=== PATIENT | female | born 1945 | race Caucasian/White ===

== ENCOUNTER → 2022-07-27 | Outpatient (CLI) | payer BC, MEDICARE ==
[~2022-07-27] MED LIST: ATROPINE SULF 1MG/10ML SYRINGE (J0461) As Ordered ONE; DIGO0.123 PO; DILT240C28 PO; ELIQ2.5T; ELIQ5TAB PO; FERR325T19 PO; FURO20TA2 PO; LIDOCAINE 1% MDV 20ML VIAL As Ordered ONE; METO50TA7 PO; MIDAZOLAM INJ 2MG/2ML VIAL (J2250 PER 1MG) As Ordered ONE; NS 1,000 ML IV SCH; PRAV10TA3 PO; SYMB16INH INH; VITA-243 PO; ceFAZolin 2 GM/D5W 50 ML IV BAG (J0690 PER 500MG) As Ordered ONE; ceFAZolin SOD 2 GM in IV 1 EA IV ONE; diphenhydrAMINE 50MG/ML VIAL As Ordered ONE; fentaNYL 100 MCG/2 ML INJECTION As Ordered ONE
[2022-07-27 16:45] VITALS: BP 143/76
== END ==
LOC: M IRPRO 14:24
PROVIDERS: ATTEND Internal Medicine Medical Oncology
DX: C56.9 Malignant neoplasm of unspecified ovary (principal)
CPT/HCPCS: 36561; C1769; C1788; C1894; J0690; J1642; J1644; J2250; J3010

== ENCOUNTER → 2022-08-11 | Outpatient (CLI) | payer MEDICARE ==
[~2022-08-11] MED LIST changes: -ATROPINE SULF 1MG/10ML SYRINGE (J0461) As Ordered ONE; -LIDOCAINE 1% MDV 20ML VIAL As Ordered ONE; -MIDAZOLAM INJ 2MG/2ML VIAL (J2250 PER 1MG) As Ordered ONE; -NS 1,000 ML IV SCH; -ceFAZolin 2 GM/D5W 50 ML IV BAG (J0690 PER 500MG) As Ordered ONE; -ceFAZolin SOD 2 GM in IV 1 EA IV ONE; -diphenhydrAMINE 50MG/ML VIAL As Ordered ONE; -fentaNYL 100 MCG/2 ML INJECTION As Ordered ONE
== END ==
LOC: M RAD 16:14
PROVIDERS: ATTEND Internal Medicine Medical Oncology
DX: R06.02 Shortness of breath (principal); C56.9 Malignant neoplasm of unspecified ovary; J90 Pleural effusion, not elsewhere classified; R91.8 Other nonspecific abnormal finding of lung field

== ENCOUNTER → 2022-08-16 | Outpatient (POV) | payer MEDICARE ==
[~2022-08-16] VITALS: Ht 160 cm; Wt 63.1 kg
[2022-08-16 13:00] VITALS: BP 159/77
== END ==
LOC: M IRPOV 12:21
PROVIDERS: ATTEND Radiology Diagnostic Radiology
DX: Z45.2 Encounter for adjustment and management of vascular access device (principal)

== ENCOUNTER → 2022-08-23 | Outpatient (CLI) | payer MEDICARE ==
[2022-08-23 11:31] LABS: PH BODY FLUID 7.652 UNITS (NOT ESTABLISHED); SOURCE, BODY FLUID pH PLEURAL
[2022-08-23 12:00] VITALS: BP 122/73
[2022-08-23 13:06] LABS: SOURCE, BODY FLUID GLUCOSE PLEURAL
[2022-08-23 13:07] LABS: LDH, BODY FLUID 118 U/L (NOT ESTABLISHED); SOURCE, BODY FLUID LDH PLEURAL
[2022-08-23 13:08] LABS: SOURCE, BODY FLUID TOT PROTEIN PLEURAL; TOTAL PROTEIN, BODY FLUID 3.1 G/DL (NOT ESTABLISHED)
== END ==
LOC: M IRPRO 09:16
PROVIDERS: ATTEND Internal Medicine Medical Oncology
DX: C56.9 Malignant neoplasm of unspecified ovary (principal); J91.0 Malignant pleural effusion
CPT/HCPCS: 32555; 71046; 82945; 83615; 83986; 84157; 88108; 88305; 88313; J1642

== ENCOUNTER → 2022-08-23 | Outpatient (CLI) | payer MEDICARE ==
[~2022-08-23] MED LIST changes: +GASTROGRAFIN SOLUTION 30ML As Ordered ONE; +ISOVUE-370 76% 100ML VIAL As Ordered ONE
== END ==
LOC: M RAD 10:50
PROVIDERS: ATTEND Internal Medicine Medical Oncology
DX: C56.9 Malignant neoplasm of unspecified ovary (principal)
CPT/HCPCS: 71260; 74177; Q9963; Q9967

== ENCOUNTER → 2022-09-21 | Outpatient (CLI) | payer MEDICARE ==
[~2022-09-21] MED LIST changes: +AUGM500T34 PO; +AZIT-12 PO; -GASTROGRAFIN SOLUTION 30ML As Ordered ONE; -ISOVUE-370 76% 100ML VIAL As Ordered ONE
== END ==
LOC: M RAD 13:48
PROVIDERS: ATTEND Internal Medicine Medical Oncology
DX: J90 Pleural effusion, not elsewhere classified (principal)

== ENCOUNTER → 2022-09-30 | Outpatient (CLI) | payer MEDICARE ==
[~2022-09-30] MED LIST changes: +AMOX500T2 PO; +LIDOCAINE 1% MDV 20ML VIAL As Ordered ONE
[2022-09-30 11:32] LABS: INR 1.15; PROTHROMBIN TIME 14.9 SECONDS (12.5-14.5)
[2022-09-30 13:15] VITALS: BP 108/57
== END ==
LOC: M IRPRO 10:29
PROVIDERS: ATTEND Internal Medicine Medical Oncology
DX: J90 Pleural effusion, not elsewhere classified (principal)

== ENCOUNTER 2022-10-10 11:22 | Inpatient (IN) | payer MEDICARE ==
[~2022-10-10] VITALS: Ht 160 cm; Wt 65.0 kg
[2022-10-10] VITALS (9 sets, daily range): BP systolic 118–147; BP diastolic 71–84
[~2022-10-10 11:22] MED LIST changes: -LIDOCAINE 1% MDV 20ML VIAL As Ordered ONE
[2022-10-10 12:43] LABS: BASO % 0.3 % (0.0-1.0); EOS % 0.3 % (0.0-3.0); HEMATOCRIT 39.5 % (36.0-47.0); HEMOGLOBIN 12.5 g/dl (12.0-15.5); LYMPH # 0.5 10^3/uL (1.5-5.0); LYMPH % 3.6 % (24.0-44.0); MEAN CORPUSCULAR HEMOGLOBIN 32.7 pg (27.0-33.0); MEAN CORPUSCULAR HGB CONC 31.6 g/dl (32.0-36.5); MEAN CORPUSCULAR VOLUME 103.4 fl (80.0-96.0); MONO # 1.2 10^3/uL (0.0-0.8); MONO % 9.5 % (2.0-8.0); NEUTROPHILS % 85.3 % (36.0-66.0); PLATELET COUNT, AUTOMATED 405 10^3/uL (150-450); RED BLOOD COUNT 3.82 10^6/uL (4.00-5.40); WHITE BLOOD COUNT 12.9 10^3/uL (4.0-10.0)
[2022-10-10 13:00] LABS: BILIRUBIN,DIRECT 0.3 MG/DL (<0.4); CALCIUM LEVEL 9.6 MG/DL (8.3-10.6); CREATININE FOR GFR 1.4 MG/DL (0.55-1.30); POTASSIUM SERUM 4.2 MMOL/L (3.5-5.1); TOTAL PROTEIN 6.8 G/DL (5.7-8.2)
[2022-10-10] MEDS ORDERED: ONDANSETRON 4MG 2ML VIAL IV PRN (13:45)
[2022-10-10] MEDS ORDERED: LEVALBUTEROL 1.25MG 0.5ML CONCENTRATE NEB NEB PRN (13:45)
[2022-10-10] MEDS ORDERED: ACETAMINOPHEN TAB 650MG DOSE (2X325MG) PO PRN (13:45)
[2022-10-10] MEDS ORDERED: BISACODYL 10MG SUPP PR PRN (13:45)
[2022-10-10] MEDS ORDERED: PERCOCET 5MG/325MG TAB PO PRN ×2 (13:45)
[2022-10-10] MEDS ORDERED: HOME MED LIST COMPLETE! XX SCH (14:25)
[2022-10-10] MEDS ORDERED: SODIUM CHLORIDE 0.9% INJ 10 ML SYR IV PRN (14:30)
[2022-10-10 15:21] LABS: RSV AMPLIFICATION NEGATIVE (NEGATIVE)
[2022-10-10 15:52] LABS: INR 1.43; PROTHROMBIN TIME 17.7 SECONDS (12.5-14.5)
[2022-10-10 15:53] LABS: PARTIAL THROMBOPLASTIN TIME 33.6 SECONDS (24.8-34.2)
[2022-10-10] MEDS: LEVALBUTEROL 1.25MG 0.5ML CONCENTRATE NEB NEB SCH ×2 (15:58→19:23)
[2022-10-10] MEDS ORDERED: VANCOMYCIN HCL 1,000 MG, VIAL MATE ADAPTER 1 EACH in NS 250 ML IV ONE (16:00)
[2022-10-10 16:04] LABS: CREATININE FOR GFR 1.38 MG/DL (0.55-1.30); GLOMERULAR FILTRATION RATE 39.7 (>39); POTASSIUM SERUM 4.4 MMOL/L (3.5-5.1)
[2022-10-10] MEDS: D5W/0.9% SODIUM CHLORIDE 1,000 ML IV SCH (16:11)
[2022-10-10] MEDS ORDERED: MIDAZOLAM INJ 2MG/2ML VIAL As Ordered ONE ×2 (16:32→16:33)
[2022-10-10] MEDS ORDERED: flumazeniL 0.5MG/5ML VIAL As Ordered ONE (16:32)
[2022-10-10] MEDS ORDERED: LIDOCAINE 1% MDV 20ML VIAL As Ordered ONE (16:33)
[2022-10-10] MEDS ORDERED: MIDAZOLAM INJ 2MG/2ML VIAL IV STA (16:42)
[2022-10-10] MEDS ORDERED: LIDOCAINE 1% MDV 20ML VIAL SC STA (17:22)
[2022-10-10 18:19] LABS: SOURCE, BODY FLUID pH PLEURAL
[2022-10-10 18:27] LABS: SOURCE, BODY FLUID ALBUMIN PLEURAL
[2022-10-10 18:32] LABS: SOURCE, BODY FLUID GLUCOSE PLEURAL; SOURCE, BODY FLUID TRIG PLEURAL; TRIGLYCERIDE, BODY FLUID 31 MG/DL (NOT ESTABLISHED)
[2022-10-10 18:33] LABS: LDH, BODY FLUID 212 U/L (NOT ESTABLISHED); SOURCE, BODY FLUID LDH PLEURAL
[2022-10-10 18:34] LABS: AMYLASE, BODY FLUID 69 U/L (NOT ESTABLISHED); CHOLESTEROL, BODY FLUID 64 MG/DL (NOT ESTABLISHED); SOURCE, BODY FLUID AMYLASE PLEURAL; SOURCE, BODY FLUID CHOL PLEURAL; SOURCE, BODY FLUID TOT PROTEIN PLEURAL; TOTAL PROTEIN, BODY FLUID 3.4 G/DL (NOT ESTABLISHED)
[2022-10-10 18:48] LABS: PLEURAL FL COLOR RED (COLORLESS); SOURCE, BODY FLUID PLEURAL
[2022-10-10 18:49] LABS: APPEARANCE, BODY FLUID CLOUDY (CLEAR)
[2022-10-10] MEDS: SYMBICORT 160/4.5MCG INHALER 6GM INH SCH (19:23)
[2022-10-10] MEDS ORDERED: cefTRIAXone SOD 2 GM in D5W MINI-BAG PLUS 50 ML IV SCH (20:00)
[2022-10-10] MEDS: DOXYCYCLINE HYCLATE 100 MG in D5W MINI-BAG PLUS 100 ML IV SCH (21:53)
[2022-10-10] MEDS: PRAVASTATIN 10 MG TAB PO SCH (22:00)
[2022-10-10] MEDS: DOCUSATE SODIUM 100MG CAPSULE PO SCH (22:00)
[2022-10-10] MEDS: FERROUS SULFATE 325MG TAB PO SCH (22:00)
[2022-10-10] MEDS: APIXABAN 5 MG TAB (ELIQUIS) PO SCH (22:00)
[2022-10-10] MEDS: METOPROLOL TART 50 MG TAB PO SCH (22:00)
[2022-10-11] MEDS: LEVALBUTEROL 1.25MG 0.5ML CONCENTRATE NEB NEB SCH ×4 (01:25→19:45)
[2022-10-11] MEDS: D5W/0.9% SODIUM CHLORIDE 1,000 ML IV SCH (04:15)
[2022-10-11 04:47] VITALS: BP 118/86
[2022-10-11 05:58] LABS: BASO % 0.4 % (0.0-1.0); EOS % 0.5 % (0.0-3.0); HEMATOCRIT 34.4 % (36.0-47.0); HEMOGLOBIN 11.1 g/dl (12.0-15.5); LYMPH # 0.6 10^3/uL (1.5-5.0); LYMPH % 7.1 % (24.0-44.0); MEAN CORPUSCULAR HEMOGLOBIN 33.5 pg (27.0-33.0); MEAN CORPUSCULAR HGB CONC 32.3 g/dl (32.0-36.5); MEAN CORPUSCULAR VOLUME 103.9 fl (80.0-96.0); MONO # 1.2 10^3/uL (0.0-0.8); MONO % 15.7 % (2.0-8.0); NEUTROPHILS % 75.7 % (36.0-66.0); PLATELET COUNT, AUTOMATED 348 10^3/uL (150-450); RED BLOOD COUNT 3.31 10^6/uL (4.00-5.40); WHITE BLOOD COUNT 7.9 10^3/uL (4.0-10.0)
[2022-10-11 06:25] LABS: CALCIUM LEVEL 8.3 MG/DL (8.3-10.6); CREATININE FOR GFR 1.16 MG/DL (0.55-1.30); GLOMERULAR FILTRATION RATE 48.5 (>39); POTASSIUM SERUM 3.8 MMOL/L (3.5-5.1)
[2022-10-11] MEDS: SYMBICORT 160/4.5MCG INHALER 6GM INH SCH ×2 (07:28→19:45)
[2022-10-11 08:15] VITALS: BP 107/64
[2022-10-11] MEDS: FERROUS SULFATE 325MG TAB PO SCH ×2 (08:24→21:40)
[2022-10-11] MEDS: LACTOBACILLUS ACIDOPHILUS CAP (BACID) PO SCH ×2 (08:24→18:30)
[2022-10-11] MEDS: PANTOPRAZOLE 40MG TAB (PROTONIX) PO SCH (08:24)
[2022-10-11] MEDS: APIXABAN 5 MG TAB (ELIQUIS) PO SCH ×2 (08:25→21:39)
[2022-10-11] MEDS: ASCORBIC ACID 500 MG TAB PO SCH (08:25)
[2022-10-11] MEDS: DOXYCYCLINE HYCLATE 100 MG in D5W MINI-BAG PLUS 100 ML IV SCH (08:26)
[2022-10-11] MEDS: DOCUSATE SODIUM 100MG CAPSULE PO SCH ×2 (09:00→21:00)
[2022-10-11] MEDS: MOM 30ML SUSPENSION UDC PO SCH (09:00)
[2022-10-11] MEDS: DIGOXIN 0.125 MG TAB PO SCH (09:24)
[2022-10-11] MEDS: FUROSEMIDE 20 MG TAB PO SCH (09:25)
[2022-10-11] MEDS: METOPROLOL TART 50 MG TAB PO SCH ×2 (09:25→21:42)
[2022-10-11 11:36] VITALS: BP 103/65
[2022-10-11 16:00] VITALS: BP 104/76
[2022-10-11] MEDS: PRAVASTATIN 10 MG TAB PO SCH (18:30)
[2022-10-11] MEDS ORDERED: DOXYCYCLINE HYCLATE 100MG TABLET PO SCH (21:00)
[2022-10-11 21:38] VITALS: BP 107/69
[2022-10-11 23:40] VITALS: BP 105/65
[2022-10-12] MEDS: LEVALBUTEROL 1.25MG 0.5ML CONCENTRATE NEB NEB SCH ×2 (02:00→08:00)
[2022-10-12 05:00] VITALS: BP 106/69
[2022-10-12 05:22] LABS: BASO % 0.3 % (0.0-1.0); EOS # 0.1 10^3/uL (0.0-0.5); EOS % 1.2 % (0.0-3.0); HEMATOCRIT 31.5 % (36.0-47.0); LYMPH # 0.6 10^3/uL (1.5-5.0); LYMPH % 8.2 % (24.0-44.0); MEAN CORPUSCULAR HEMOGLOBIN 32.9 pg (27.0-33.0); MEAN CORPUSCULAR HGB CONC 31.7 g/dl (32.0-36.5); MEAN CORPUSCULAR VOLUME 103.6 fl (80.0-96.0); MONO # 1.2 10^3/uL (0.0-0.8); MONO % 16.1 % (2.0-8.0); NEUTROPHILS # 5.4 10^3/uL (1.5-8.5); PLATELET COUNT, AUTOMATED 357 10^3/uL (150-450); RED BLOOD COUNT 3.04 10^6/uL (4.00-5.40); WHITE BLOOD COUNT 7.5 10^3/uL (4.0-10.0)
[2022-10-12 05:47] LABS: CALCIUM LEVEL 8.1 MG/DL (8.3-10.6); CREATININE FOR GFR 1.15 MG/DL (0.55-1.30); POTASSIUM SERUM 4.2 MMOL/L (3.5-5.1)
[2022-10-12] MEDS: SYMBICORT 160/4.5MCG INHALER 6GM INH SCH (07:59)
[2022-10-12 08:00] VITALS: BP 110/68
[2022-10-12] MEDS: DOCUSATE SODIUM 100MG CAPSULE PO SCH (09:00)
[2022-10-12] MEDS: MOM 30ML SUSPENSION UDC PO SCH (09:00)
[2022-10-12] MEDS: FERROUS SULFATE 325MG TAB PO SCH (09:02)
[2022-10-12] MEDS: LACTOBACILLUS ACIDOPHILUS CAP (BACID) PO SCH (09:02)
[2022-10-12 09:03] VITALS: BP 110/68
[2022-10-12] MEDS: METOPROLOL TART 50 MG TAB PO SCH (09:03)
[2022-10-12] MEDS: APIXABAN 5 MG TAB (ELIQUIS) PO SCH (09:03)
[2022-10-12] MEDS: DIGOXIN 0.125 MG TAB PO SCH (09:04)
[2022-10-12] MEDS: ASCORBIC ACID 500 MG TAB PO SCH (09:05)
[2022-10-12] MEDS: PANTOPRAZOLE 40MG TAB (PROTONIX) PO SCH (09:05)
[2022-10-12] MEDS: FUROSEMIDE 20 MG TAB PO SCH (09:06)
[2022-10-12 12:00] VITALS: BP 104/62
[2022-10-12] MEDS ORDERED: ACET1TAB55 PO (12:11)
[2022-10-12] MEDS ORDERED: SODIUM CHLORIDE 0.9% INJ 10 ML SYR IV PRN (14:20)
== END 2022-10-12 14:55 | disposition home health service (06) | DRG 871 ==
LOC: M ED 11:22 → M ED INP 13:45 → M PCU 13:45 → ENRESERV 14:35 → M PCU 15:57
PROVIDERS: ADMIT Thoracic Surgery (Cardiothoracic Vascular Surgery); ATTEND General Practice
PROC: 0W9B30Z Drainage of Left Pleural Cavity with Drainage Device, Percutaneous Approach (ICD-10-PCS; principal; 2022-10-10)
DX: A41.9 Sepsis, unspecified organism (principal); J15.9 Unspecified bacterial pneumonia; J91.0 Malignant pleural effusion; C56.9 Malignant neoplasm of unspecified ovary; J96.11 Chronic respiratory failure with hypoxia; C78.02 Secondary malignant neoplasm of left lung; J44.9 Chronic obstructive pulmonary disease, unspecified; Z99.81 Dependence on supplemental oxygen; I48.91 Unspecified atrial fibrillation; E78.5 Hyperlipidemia, unspecified; I10 Essential (primary) hypertension; F17.200 Nicotine dependence, unspecified, uncomplicated; Z79.899 Other long term (current) drug therapy; Z79.01 Long term (current) use of anticoagulants; Z88.0 Allergy status to penicillin; Z20.822 Contact with and (suspected) exposure to COVID-19

== ENCOUNTER 2022-10-19 18:27 | Inpatient (IN) | payer MEDICARE ==
[~2022-10-19] VITALS: Ht 160 cm; Wt 65.3 kg
[~2022-10-19 18:27] MED LIST changes: +ACET1TAB55 PO
[2022-10-19] MEDS ORDERED: ACETAMINOPHEN TAB 650MG DOSE (2X325MG) PO PRN (21:05)
[2022-10-19 21:15] VITALS: BP 123/69
[2022-10-19 22:23] LABS: HEMATOCRIT 26.9 % (36.0-47.0); HEMOGLOBIN 8.3 g/dl (12.0-15.5); MEAN CORPUSCULAR HEMOGLOBIN 33.1 pg (27.0-33.0); MEAN CORPUSCULAR HGB CONC 30.9 g/dl (32.0-36.5); MEAN CORPUSCULAR VOLUME 107.2 fl (80.0-96.0); PLATELET COUNT, AUTOMATED 300 10^3/uL (150-450); RED BLOOD COUNT 2.51 10^6/uL (4.00-5.40); WHITE BLOOD COUNT 1.5 10^3/uL (4.0-10.0)
[2022-10-19 22:32] LABS: INR 1.23; PROTHROMBIN TIME 15.8 SECONDS (12.5-14.5)
[2022-10-19 22:33] LABS: PARTIAL THROMBOPLASTIN TIME 33.3 SECONDS (24.8-34.2)
[2022-10-19 23:00] VITALS: O2SAT 96
[2022-10-19] MEDS ORDERED: DOCU100C16 PO (23:00)
[2022-10-19] MEDS ORDERED: ONDA-196 PO (23:00)
[2022-10-19] MEDS ORDERED: ALBU2.5V10 INH (23:00)
[2022-10-19] MEDS ORDERED: RISATAB3 PO (23:00)
[2022-10-19] MEDS ORDERED: PANT40TA29 PO (23:00)
[2022-10-19] MEDS ORDERED: HOME MED LIST COMPLETE! XX SCH (23:05)
[2022-10-19] MEDS ORDERED: ALBUTEROL SULFATE 2.5MG/0.5ML INH NEB SOLN INH PRN (23:05)
[2022-10-19 23:27] LABS: ALKALINE PHOSPHATASE 64 U/L (46-116); ALT/SGPT 10 U/L (7.0-40); AST/SGOT 42 U/L (<34); BILIRUBIN,TOTAL 0.5 MG/DL (0.3-1.2); BLOOD UREA NITROGEN 28 MG/DL (9-23); CARBON DIOXIDE LEVEL 24 MMOL/L (20-31); CHLORIDE LEVEL 112 MMOL/L (98-107); CK-MB VALUE MASS < 1.0 NG/ML (<3.6); CPK CREATINE PHOSPHOKINASE 16 U/L (34-145); CREATININE FOR GFR 1.04 MG/DL (0.55-1.30); FREE T4 1.19 NG/DL (0.89-1.76); GLUCOSE, FASTING 118 MG/DL (74-106); MAGNESIUM LEVEL 1.8 MG/DL (1.8-2.4); MB/CK RELATIVE INDEX 6.25 (< OR =4); POTASSIUM SERUM 4.1 MMOL/L (3.5-5.1); SODIUM LEVEL 142 MMOL/L (136-145); TOTAL PROTEIN 4.8 G/DL (5.7-8.2)
[2022-10-19 23:53] VITALS: O2SAT 96
[2022-10-20] VITALS (17 sets, daily range): BP systolic 109–134; BP diastolic 58–80; O2SAT 93–98
[2022-10-20] MEDS: PRAVASTATIN 10 MG TAB PO SCH ×2 (00:12→20:50)
[2022-10-20] MEDS: SYMBICORT 160/4.5MCG INHALER 6GM INH SCH ×2 (07:44→20:34)
[2022-10-20] MEDS: GASTROGRAFIN SOLUTION 30ML PO SCH ×2 (08:15→09:04)
[2022-10-20] MEDS: DOCUSATE SODIUM 100MG CAPSULE PO SCH (08:15)
[2022-10-20] MEDS: PANTOPRAZOLE 40MG TAB (PROTONIX) PO SCH (08:15)
[2022-10-20] MEDS: LACTOBACILLUS ACIDOPHILUS CAP (BACID) PO SCH (08:15)
[2022-10-20] MEDS: APIXABAN 5 MG TAB (ELIQUIS) PO SCH ×2 (08:15→20:49)
[2022-10-20] MEDS: DIGOXIN 0.125 MG TAB PO SCH (08:16)
[2022-10-20] MEDS: FERROUS SULFATE 325MG TAB PO SCH (08:16)
[2022-10-20] MEDS: SODIUM CHLORIDE 0.9% INJ 10 ML SYR IV SCH (08:17)
[2022-10-20] MEDS: METOPROLOL TART 50 MG TAB PO SCH ×2 (08:17→20:49)
[2022-10-20 08:28] LABS: EOS % 0.7 % (0.0-3.0); HEMATOCRIT 25.2 % (36.0-47.0); HEMOGLOBIN 7.7 g/dl (12.0-15.5); LYMPH # 0.4 10^3/uL (1.5-5.0); LYMPH % 25.5 % (24.0-44.0); MEAN CORPUSCULAR HEMOGLOBIN 32.2 pg (27.0-33.0); MEAN CORPUSCULAR HGB CONC 30.6 g/dl (32.0-36.5); MEAN CORPUSCULAR VOLUME 105.4 fl (80.0-96.0); MONO # 0.2 10^3/uL (0.0-0.8); MONO % 12.8 % (2.0-8.0); NEUTROPHILS % 59.6 % (36.0-66.0); PLATELET COUNT, AUTOMATED 247 10^3/uL (150-450); RED BLOOD COUNT 2.39 10^6/uL (4.00-5.40); WHITE BLOOD COUNT 1.4 10^3/uL (4.0-10.0)
[2022-10-20 08:40] LABS: BLOOD UREA NITROGEN 23 MG/DL (9-23); CALCIUM LEVEL 7.9 MG/DL (8.3-10.6); CARBON DIOXIDE LEVEL 22 MMOL/L (20-31); CHLORIDE LEVEL 111 MMOL/L (98-107); CREATININE FOR GFR 0.86 MG/DL (0.55-1.30); GLOMERULAR FILTRATION RATE > 60.0 (>39); GLUCOSE, FASTING 80 MG/DL (74-106); POTASSIUM SERUM 3.4 MMOL/L (3.5-5.1); SODIUM LEVEL 140 MMOL/L (136-145)
[2022-10-20 08:45] LABS: FOLATE 14.5 NG/ML (>5.4); VITAMIN B12 LEVEL 951 PG/ML (211-911)
[2022-10-20] MEDS ORDERED: FUROSEMIDE 20 MG TAB PO SCH (09:00)
[2022-10-20 09:08] LABS: NEUTROPHILS # 0.8 10^3/uL (1.5-8.5)
[2022-10-20] MEDS ORDERED: ISOVUE-370 76% 100ML VIAL As Ordered ONE (09:10)
[2022-10-20 10:36] LABS: HEMATOCRIT 26.3 % (36.0-47.0); HEMOGLOBIN 8.2 g/dl (12.0-15.5)
[2022-10-20] MEDS ORDERED: KCL 10MEQ/100ML SWI (KRUN) 10 MEQ in IV 1 EA IV ONE (12:35)
[2022-10-20] MEDS ORDERED: KETOROLAC 30 MG/ML 1ML VIAL IV ONE (12:35)
[2022-10-20] MEDS ORDERED: ONDANSETRON 4MG 2ML VIAL IV ONE ×2 (12:35→23:20)
[2022-10-20] MEDS ORDERED: ACETAMINOPHEN 500 MG TAB PO ONE (12:35)
[2022-10-20] MEDS ORDERED: MOM 30ML SUSPENSION UDC PO PRN (12:40)
[2022-10-20] MEDS: SENOKOT S TAB PO SCH ×2 (13:27→20:50)
[2022-10-20] MEDS: SIMETHICONE 80MG CHEW TAB PO SCH ×3 (13:27→20:49)
[2022-10-20 16:07] LABS: HEMATOCRIT 32.9 % (36.0-47.0)
[2022-10-20 16:10] LABS: HEMOGLOBIN 10.6 g/dl (12.0-15.5)
[2022-10-20] MEDS: ONDANSETRON 4MG ORAL DISINTEGRATING TAB SL SCH (18:02)
[2022-10-21] MEDS ORDERED: LIDOCAINE 5% (LIDODERM) PATCH TD ONE
[2022-10-21] MEDS: ONDANSETRON 4MG ORAL DISINTEGRATING TAB SL SCH ×2 (01:14→06:24)
[2022-10-21 04:05] VITALS: BP 123/73
[2022-10-21] MEDS ORDERED: MORPHINE 2 MG/ML 1ML VIAL IV ONE (04:30)
[2022-10-21 04:48] LABS: HEMOGLOBIN 10.4 g/dl (12.0-15.5); MEAN CORPUSCULAR HEMOGLOBIN 33.3 pg (27.0-33.0); MEAN CORPUSCULAR HGB CONC 33.5 g/dl (32.0-36.5); MEAN CORPUSCULAR VOLUME 99.4 fl (80.0-96.0); PLATELET COUNT, AUTOMATED 258 10^3/uL (150-450); RED BLOOD COUNT 3.12 10^6/uL (4.00-5.40); WHITE BLOOD COUNT 1.6 10^3/uL (4.0-10.0)
[2022-10-21 05:05] LABS: CALCIUM LEVEL 8.4 MG/DL (8.3-10.6); CREATININE FOR GFR 1.34 MG/DL (0.55-1.30)
[2022-10-21] MEDS ORDERED: cefTRIAXone SOD 2 GM in D5W MINI-BAG PLUS 50 ML IV SCH (06:00)
[2022-10-21] MEDS: SYMBICORT 160/4.5MCG INHALER 6GM INH SCH ×2 (08:05→20:17)
[2022-10-21 08:14] VITALS: BP 108/63
[2022-10-21] MEDS: METOPROLOL TART 50 MG TAB PO SCH (08:14)
[2022-10-21 08:15] LABS: EOSINOPHILS 1 % (0-3); LYMPHOCYTES 37 % (16-44); MONOCYTES 5 % (0-5); NEUTROPHILS 56 % (28-66)
[2022-10-21 08:16] LABS: PLATELET CLUMPS MODERATE AMT; POLYCHROMASIA 2+
[2022-10-21 08:17] VITALS: BP 108/63
[2022-10-21 08:17] LABS: ANISOCYTOSIS 1+; PLATELET ESTIMATE NORMAL (NORMAL)
[2022-10-21] MEDS: PANTOPRAZOLE 40MG TAB (PROTONIX) PO SCH (08:20)
[2022-10-21] MEDS: LACTOBACILLUS ACIDOPHILUS CAP (BACID) PO SCH (08:20)
[2022-10-21] MEDS: METOCLOPRAMIDE INJ 10MG/2ML VIAL IV SCH ×3 (08:20→20:05)
[2022-10-21] MEDS: SIMETHICONE 80MG CHEW TAB PO SCH (08:21)
[2022-10-21] MEDS: FERROUS SULFATE 325MG TAB PO SCH (08:24)
[2022-10-21] MEDS: APIXABAN 5 MG TAB (ELIQUIS) PO SCH (08:25)
[2022-10-21] MEDS: SENOKOT S TAB PO SCH (08:26)
[2022-10-21] MEDS: DIGOXIN 0.125 MG TAB PO SCH (08:27)
[2022-10-21] MEDS: DOCUSATE SODIUM 100MG CAPSULE PO SCH (08:28)
[2022-10-21] MEDS: SODIUM CHLORIDE 0.9% INJ 10 ML SYR IV SCH (08:30)
[2022-10-21] MEDS ORDERED: NS 1,000 ML IV ONE (08:30)
[2022-10-21] MEDS ORDERED: PANTOPRAZOLE 40MG VIAL IV SCH (09:00)
[2022-10-21] MEDS ORDERED: ONDANSETRON 4MG 2ML VIAL IV PRN (15:05)
[2022-10-21] MEDS ORDERED: HYOSCYAMINE SULFATE 0.125 MG SUBL TABLET PO PRN (15:05)
[2022-10-21] MEDS ORDERED: BISACODYL 10MG SUPP PR PRN (15:05)
[2022-10-21] MEDS ORDERED: SCOPOLAMINE 1MG TRANSDERMAL PATCH TOP PRN (15:05)
[2022-10-21] MEDS ORDERED: LORazepam 2 MG/ML 1ML VIAL IV PRN (15:05)
[2022-10-21] MEDS ORDERED: ATROPINE SULFATE 1% OPHTH SOLN 2ML BTL SL PRN (15:05)
[2022-10-21] MEDS ORDERED: MORPHINE 2 MG/ML 1ML VIAL IV PRN (15:05)
[2022-10-22] MEDS: METOCLOPRAMIDE INJ 10MG/2ML VIAL IV SCH ×4 (02:35→19:47)
[2022-10-22] MEDS: SYMBICORT 160/4.5MCG INHALER 6GM INH SCH ×2 (08:16→21:09)
[2022-10-22] MEDS: SODIUM CHLORIDE 0.9% INJ 10 ML SYR IV SCH (08:45)
[2022-10-22] MEDS: PANTOPRAZOLE 40MG VIAL IV SCH ×2 (08:45→19:47)
[2022-10-22] MEDS: ONDANSETRON 4MG 2ML VIAL IV SCH ×3 (11:36→22:50)
[2022-10-23] MEDS: METOCLOPRAMIDE INJ 10MG/2ML VIAL IV SCH ×4 (01:58→20:09)
[2022-10-23] MEDS: ONDANSETRON 4MG 2ML VIAL IV SCH ×4 (04:48→23:11)
[2022-10-23] MEDS ORDERED: MOM 30ML SUSPENSION UDC PO PRN (07:15)
[2022-10-23] MEDS ORDERED: SENOKOT S TAB PO PRN (07:15)
[2022-10-23] MEDS ORDERED: FLEET ENEMA PR PRN (07:15)
[2022-10-23] MEDS ORDERED: BISACODYL 10MG SUPP PR PRN (07:15)
[2022-10-23] MEDS: KETOROLAC 30 MG/ML 1ML VIAL IV SCH ×3 (07:29→20:10)
[2022-10-23] MEDS: PANTOPRAZOLE 40MG VIAL IV SCH ×2 (07:30→20:10)
[2022-10-23] MEDS: SODIUM CHLORIDE 0.9% INJ 10 ML SYR IV SCH (07:31)
[2022-10-23] MEDS ORDERED: HYDROMORPHONE HCL 0.5 MG/ 0.5 ML SYRINGE IV ONE (08:00)
[2022-10-23] MEDS ORDERED: BISACODYL 10MG SUPP PR ONE (08:00)
[2022-10-23] MEDS: SYMBICORT 160/4.5MCG INHALER 6GM INH SCH ×2 (08:19→21:06)
[2022-10-23] MEDS: SODIUM CHLORIDE 0.9% INJ 10 ML SYR IV PRN ×2 (10:37→16:29)
[2022-10-24] MEDS: KETOROLAC 30 MG/ML 1ML VIAL IV SCH (01:43)
[2022-10-24] MEDS: METOCLOPRAMIDE INJ 10MG/2ML VIAL IV SCH (01:43)
[2022-10-24] MEDS: ONDANSETRON 4MG 2ML VIAL IV SCH (05:15)
[2022-10-24] MEDS ORDERED: LORazepam 1 MG TAB PO PRN (07:15)
[2022-10-24] MEDS: SYMBICORT 160/4.5MCG INHALER 6GM INH SCH ×2 (07:39→20:45)
[2022-10-24] MEDS: SODIUM CHLORIDE 0.9% INJ 10 ML SYR IV SCH (09:00)
[2022-10-24] MEDS: ONDANSETRON 4MG ORAL DISINTEGRATING TAB PO PRN (14:27)
[2022-10-24] MEDS: MORPHINE 10MG/0.5ML ORAL CONCENTRATE SOLUTION U/D SL PRN (14:28)
[2022-10-25] MEDS: MORPHINE 10MG/0.5ML ORAL CONCENTRATE SOLUTION U/D SL PRN ×2 (00:08→10:02)
[2022-10-25] MEDS: SYMBICORT 160/4.5MCG INHALER 6GM INH SCH ×2 (08:16→19:40)
[2022-10-25] MEDS: SODIUM CHLORIDE 0.9% INJ 10 ML SYR IV SCH (09:00)
[2022-10-25] MEDS: ONDANSETRON 4MG ORAL DISINTEGRATING TAB PO PRN (10:02)
[2022-10-25] MEDS ORDERED: PROMETHAZINE 25MG/ML 1ML VIAL IV PRN (17:30)
[2022-10-26] MEDS: ONDANSETRON 4MG ORAL DISINTEGRATING TAB PO PRN ×3 (05:06→19:57)
[2022-10-26] MEDS: CALCIUM CARBONATE 500 MG CHEW U/D PO PRN ×2 (05:32→10:17)
[2022-10-26] MEDS: SYMBICORT 160/4.5MCG INHALER 6GM INH SCH ×2 (08:58→20:09)
[2022-10-26] MEDS: SODIUM CHLORIDE 0.9% INJ 10 ML SYR IV SCH (11:32)
[2022-10-26] MEDS ORDERED: MORP1SOL SL (12:43)
[2022-10-26] MEDS ORDERED: BISA10SU PR (12:43)
[2022-10-26] MEDS ORDERED: ATRO1OPD SL (12:43)
[2022-10-26] MEDS ORDERED: HYOS125TA PO ×2 (12:43→17:41)
[2022-10-26] MEDS ORDERED: ONDA4TAB6 PO (12:43)
[2022-10-26] MEDS ORDERED: ATIV1TAB7 PO (12:43)
[2022-10-26] MEDS ORDERED: TRAN1DIS4 TOP (12:43)
[2022-10-26] MEDS ORDERED: SENN-52 PO (12:43)
[2022-10-26] MEDS ORDERED: MOM30SS2 PO (12:43)
[2022-10-26] MEDS: MORPHINE 10MG/0.5ML ORAL CONCENTRATE SOLUTION U/D SL PRN ×2 (16:51→19:50)
[2022-10-26] MEDS ORDERED: MORP1SOL5 PO (17:41)
[2022-10-26] MEDS ORDERED: ATIV1TAB10 PO (17:41)
[2022-10-27] MEDS: SYMBICORT 160/4.5MCG INHALER 6GM INH SCH (07:46)
[2022-10-27] MEDS: ONDANSETRON 4MG ORAL DISINTEGRATING TAB PO PRN (08:43)
[2022-10-27] MEDS: MORPHINE 10MG/0.5ML ORAL CONCENTRATE SOLUTION U/D SL PRN (08:43)
== END 2022-10-27 09:05 | disposition hospice, inpatient (51) | DRG 389 ==
LOC: M PCU 21:05 → M MS5PR 10-22 12:50
PROVIDERS: ADMIT Family Medicine; ATTEND Internal Medicine
PROC: 30233N1 Transfusion of Nonautologous Red Blood Cells into Peripheral Vein, Percutaneous Approach (ICD-10-PCS; principal; 2022-10-20)
DX: K56.7 Ileus, unspecified (principal); C56.9 Malignant neoplasm of unspecified ovary; I48.20 Chronic atrial fibrillation, unspecified; R18.0 Malignant ascites; J98.11 Atelectasis; J91.0 Malignant pleural effusion; D62 Acute posthemorrhagic anemia; K92.0 Hematemesis; K92.2 Gastrointestinal hemorrhage, unspecified; K21.9 Gastro-esophageal reflux disease without esophagitis; R62.7 Adult failure to thrive; Z92.21 Personal history of antineoplastic chemotherapy; Z79.01 Long term (current) use of anticoagulants; J44.9 Chronic obstructive pulmonary disease, unspecified; D64.81 Anemia due to antineoplastic chemotherapy; I11.0 Hypertensive heart disease with heart failure; I50.9 Heart failure, unspecified; Z51.5 Encounter for palliative care; Z79.899 Other long term (current) drug therapy; Z88.0 Allergy status to penicillin